=== PATIENT | female | born 1960 ===

== ENCOUNTER 2021-05-19 17:15 | Outpatient (REF) | payer OTHER, SELFPAY | END 2021-05-19 17:16 | disposition home or self-care (01) | LOC: HO.LAB 17:15 | PROVIDERS: Visit Provider Nurse Practitioner Family | DX: N39.0 Urinary tract infection, site not specified (principal) | CPT/HCPCS: 87086; 87088; 87186 ==

== ENCOUNTER 2024-10-24 10:45 | Outpatient (AMB) | payer OTHER, SELFPAY ==
[2024-10-24 10:53] VITALS: BP 138/74; PULSE 74; O2SAT 99; BMI 34.4
--- NOTE | 2024-10-24 10:53 | A.OFFVIS_ITS ---
Vital Signs 10/24/24 10:53 Height 4 ft 11 in Weight 170 lb 3.15 oz BMI 34.4 BP 138/74 Blood Pressure Location Lt brachial Position Sitting Pulse 74 Pulse Source Pulse Oximeter Pulse Oximetry (%) 99 Oxygen Delivery Method Room Air Intake Visit Reasons: Arthralgia/Inj Intake Note: Patient presents for bursitis in her hips and cortisone injection. Allergies oxycodone Allergy (Mild, Verified 10/24/24 11:02) Anaphylaxis norepinephrine Allergy (Verified 10/24/24 11:02) Unknown sulfamethoxazole [From Bactrim] Allergy (Verified 10/24/24 11:02) Unknown trimethoprim [From Bactrim] Allergy (Verified 10/24/24 11:02) Unknown HPI HPI Arthralgia/Inj: Details: She has bilateral hip pain, worsening in the last few months. She has not had a cortisone injection in 6 months. Review of Systems Const All systems reviewed & are unremarkable except as noted in HPI and below Physical Exam Vital Signs: Last Vital Signs Pulse 74 10/24/24 10:53 BP 138/74 10/24/24 10:53 Pulse Ox 99 10/24/24 10:53 Oxygen Delivery Method Room Air 10/24/24 10:53 BMI result Body Mass Index 34.4 Const Other: General: Comfortable Skin: No lesions seen MSK: Trochanteric bursa tenderness found. Good range of motion of bilateral hips. Office Procedures AMB Joint Injection/Aspiration Joint Injection/Aspiration Details: Left trochanteric bursa Prep: site was prepped using aseptic technique Injected: 40 mg of, Kenalog, with 1 mL of and 1% plain lidocaine Procedure: The patient tolerated the procedure well Coding - Bilateral Large Joint - Glenohumeral/Tronchanteric Bursa/Intraarticular Procedure code (CPT) selection complete AMB Joint Injection/Aspiration Joint Injection/Aspiration Details: Right trochanteric bursa Prep: site was prepped using aseptic technique Injected: 40 mg of, Kenalog, with 1 mL of and 1% plain lidocaine Procedure: The patient tolerated the procedure well Coding - Bilateral Large Joint - Glenohumeral/Tronchanteric Bursa/Intraarticular Procedure code (CPT) selection complete Office Meds lidocaine (PF) 10 mg/mL (1 %) injection solution Performing Provider: Eugene Chamberlain MD Performing Location: [facility] [place] [facility] Administered by: Eugene Chamberlain MD on 10/25/24 12:35 Dose Route Admin Location Dispensed Lot Number Expiration Date [facility] Legal Biller 10 mg Infiltration 2 mL [id number] [employer] Kenalog 40 mg/mL suspension for injection Performing Provider: Eugene Chamberlain MD Performing Location: [facility] [place] [facility] Administered by: Eugene Chamberlain MD on 10/25/24 12:35 Dose Route Admin Location Dispensed Lot Number Expiration Date [facility] Legal Biller 40 mg intrabursal 1 mL AP [id number] [employer] lidocaine (PF) 10 mg/mL (1 %) injection solution Performing Provider: Eugene Chamberlain MD Performing Location: [facility] [place] [facility] Administered by: Eugene Chamberlain MD on 10/25/24 12:35 Dose Route Admin Location Dispensed Lot Number Expiration Date [facility] Legal Biller 10 mg Infiltration 2 mL [id number] [employer] Kenalog 40 mg/mL suspension for injection Performing Provider: Eugene Chamberlain MD Performing Location: [facility] [place] [facility] Administered by: Eugene Chamberlain MD on 10/25/24 12:35 Dose Route Admin Location Dispensed Lot Number Expiration Date [facility] Legal Biller 40 mg intrabursal 1 mL AP [id number] [employer] Assessment & Plan Assessment & Plan (1) Greater trochanteric bursitis of both hips: Comment: Pain is uncontrolled. Code(s): M70.61 - Trochanteric bursitis, right hip; M70.62 - Trochanteric bursitis, left hip Category: Medical Plan: Bilateral trochanteric bursa cortisone injections given today Return to clinic in 3 months Orders: Orders AMB Joint Injection/Aspiration 10/24/24 M70.61 - Trochanteric bursitis, right hip, M70.62 - Trochanteric bursitis, left hip AMB Joint Injection/Aspiration 10/24/24 M70.61 - Trochanteric bursitis, right hip, M70.62 - Trochanteric bursitis, left hip Coding Level of Care Code Est Pt Level 3 (54298) Complex EM visit Add On G2211 Diagnoses Greater trochanteric bursitis of both hips M70.61; M70.62 CPT Codes Coding - 38020 - Bilateral Large Joint: 77375 - Bilateral Large Joint ([id number]) Coding - Joint 7: 24172 - Glenohumeral/Tronchanteric Bursa/Intraarticular ([id number]) Coding - 87999 - Bilateral Large Joint: 84967 - Bilateral Large Joint ([id number]) Coding - Joint 7: 52898 - Glenohumeral/Tronchanteric Bursa/Intraarticular ([id number])
== END 2024-10-24 12:04 | disposition home or self-care (01) ==
PROVIDERS: Visit Provider Internal Medicine Rheumatology
DX: M70.61 Trochanteric bursitis, right hip (principal); M70.62 Trochanteric bursitis, left hip
CPT/HCPCS: 20610; 99213

== ENCOUNTER → 2024-10-24 10:45 | Outpatient (BNVA) | payer OTHER, SELFPAY | PROVIDERS: Visit Provider Internal Medicine Rheumatology | DX: M70.61 Trochanteric bursitis, right hip (principal); M70.62 Trochanteric bursitis, left hip | CPT/HCPCS: 20610; 99212; J2003; J3300 ==

== ENCOUNTER 2025-01-18 10:38 | Outpatient (AMB) | payer OTHER, SELFPAY ==
--- NOTE | 2025-01-18 10:43 | MHC.OFFVIS ---
Vital Signs 01/18/25 10:54 Height 4 ft 11 in Weight 160 lb 4.417 oz BMI 32.4 BP 130/80 Blood Pressure Location Lt brachial Position Sitting Pulse 83 Pulse Source Pulse Oximeter Pulse Oximetry (%) 100 Oxygen Delivery Method Room Air Intake Visit Reasons: Follow Up 3mo Intake Note: Patient presents for bursitis in her hips with cortisone injection Allergies oxycodone Allergy (Mild, Verified 01/18/25 10:57) Anaphylaxis norepinephrine Allergy (Verified 01/18/25 10:57) Unknown sulfamethoxazole [From Bactrim] Allergy (Verified 01/18/25 10:57) Unknown trimethoprim [From Bactrim] Allergy (Verified 01/18/25 10:57) Unknown HPI HPI Follow Up 3mo: Details: Last cortisone injections lasting at least 2 months. She started experiencing increased pain progressively getting worse in the last month. Review of Systems Const All systems reviewed & are unremarkable except as noted in HPI and below Physical Exam Vital Signs: Last Vital Signs Pulse 83 01/18/25 10:54 BP 130/80 01/18/25 10:54 Pulse Ox 100 01/18/25 10:54 Oxygen Delivery Method Room Air 01/18/25 10:54 BMI result Body Mass Index 32.4 Const Other: General: Comfortable Skin: No lesions seen MSK: Trochanteric bursa tenderness found. Tender bilateral gluteal regions. Good range of motion of bilateral hips. Office Procedures AMB Joint Injection/Aspiration Joint Injection/Aspiration Details: Bilateral trochanteric bursa Prep: site was prepped using aseptic technique Injected into each site: 40 mg of, Kenalog, with 1 mL of and 1% plain lidocaine Procedure: The patient tolerated the procedure well. Postprocedure protocol was discussed with patient. Coding 78583 - Bilateral Large Joint Procedure code (CPT) selection complete AMB Joint Injection/Aspiration Coding 60028 - Bilateral Large Joint Procedure code (CPT) selection complete Office Meds lidocaine (PF) 10 mg/mL (1 %) injection solution Performing Provider: Eugene Chamberlain MD Per[place] Location[place] [facility] [place] Administered by: Eugene Chamberlain MD on 01/18/25 11:22 Dose Route Admin Location Dispensed Lot Number Expiration Date [facility] Independent Producer 10 mg Infiltration 2 mL [id number] [facility] Kenalog 40 mg/mL suspension for injection Performing Provider: Eugene Chamberlain MD Performing Location: [facility] [place] [facility] Administered by: Eugene Chamberlain MD on 01/18/25 11:22 Dose Route Admin Location Dispensed Lot Number Expiration Date [facility] Independent Producer 40 mg intrabursal 1 mL AP [id number] [employer] lidocaine (PF) 10 mg/mL (1 %) injection solution Performing Provider: Eugene Chamberlain MD Performing Location: [facility] [place] [facility] Administered by: Eugene Chamberlain MD on 01/18/25 11:22 Dose Route Admin Location Dispensed Lot Number Expiration Date [facility] Independent Producer 10 mg Infiltration 2 mL [id number] [facility] Kenalog 40 mg/mL suspension for injection Performing Provider: Eugene Chamberlain MD Performing Location: [facility] [place] [facility] Documented (not given) by: Eugene Chamberlain MD on 01/18/25 11:22 Dose Route Admin Location Dispensed Lot Number Expiration Date [facility] Independent Producer 40 mg intrabursal mL Assessment & Plan Assessment & Plan (1) Greater trochanteric bursitis of both hips: Comment: Pain is uncontrolled. Code(s): M70.61 - Trochanteric bursitis, right hip; M70.62 - Trochanteric bursitis, left hip Category: Medical Plan: Patient received bilateral trochanteric bursa cortisone injection this visit She agreed to start physical therapy for hip strengthening with hope of having improved control of trochanteric bursa pain Return to clinic in 3 months Orders: Orders AMB Joint Injection/Aspiration Today M70.61 - Trochanteric bursitis, right hip, M70.62 - Trochanteric bursitis, left hip PT Evaluation and Treatment Today M70.61 - Trochanteric bursitis, right hip, M70.62 - Trochanteric bursitis, left hip AMB Joint Injection/Aspiration Today M70.61 - Trochanteric bursitis, right hip, M70.62 - Trochanteric bursitis, left hip Medications: New Kenalog (triamcinolone acetonide) 40 mg intrabursal ONCE 1 mL 0RF NS M70.61 - Trochanteric bursitis, right hip, M70.62 - Trochanteric bursitis, left hip Coding Level of Care Code Est Pt Level 3 (72038) Complex EM visit Add On G2211 Diagnoses Greater trochanteric bursitis of both hips M70.61; M70.62 CPT Codes Coding - 56768 - Bilateral Large Joint: 60911 - Bilateral Large Joint ([id number]) Coding - 33291 - Bilateral Large Joint: 00745 - Bilateral Large Joint ([id number])
[2025-01-18 10:54] VITALS: BP 130/80; PULSE 83; O2SAT 100; BMI 32.4
== END 2025-01-18 11:35 | disposition home or self-care (01) ==
LOC: HO.RHES 10:39
PROVIDERS: Visit Provider Internal Medicine Rheumatology
DX: M70.61 Trochanteric bursitis, right hip (principal); M70.62 Trochanteric bursitis, left hip
CPT/HCPCS: 20610

== ENCOUNTER → 2025-01-18 10:38 | Outpatient (BNVA) | payer OTHER, SELFPAY | PROVIDERS: Visit Provider Internal Medicine Rheumatology | DX: M70.61 Trochanteric bursitis, right hip (principal); M70.62 Trochanteric bursitis, left hip | CPT/HCPCS: 20610; J2003; J3300 ==

== ENCOUNTER 2025-05-24 08:53 | Outpatient (AMB) | payer OTHER, SELFPAY ==
--- NOTE | 2025-05-24 08:56 | MHC.OFFVIS ---
Vital Signs 05/24/25 08:59 Height 4 ft 11 in Weight 173 lb BMI 34.9 BP 120/90 H Blood Pressure Location Rt brachial Position Sitting Pulse 85 Pulse Source Pulse Oximeter Pulse Oximetry (%) 96 Oxygen Delivery Method Room Air Intake Visit Reasons: follow up Intake Note: Patient presents for bursitis in her hips with cortisone injection Accompanied by: Self / Same As Patient Allergies oxycodone Allergy (Mild, Verified 05/24/25 09:00) Anaphylaxis norepinephrine Allergy (Verified 05/24/25 09:00) Unknown sulfamethoxazole (From Bactrim) Allergy (Verified 05/24/25 09:00) Unknown trimethoprim (From Bactrim) Allergy (Verified 05/24/25 09:00) Unknown HPI HPI follow up: Details: Pain in hips is uncontrolled. She went to ER for back pain and hip pain with lower back pain radiating up. She was given ketorolac and had imaging done. L-spine x-ray 03/29/2025 revealed levoscoliosis, grade 1 3.7 mm posterior spondylolisthesis of L5 relative to S1. There is degenerative disc disease at L5-S1. She continues to have lower back pain with radiation up the back. She had MRI L-spine but does not have report with her. She has not started PT. Physical Exam Vital Signs: Last Vital Signs Pulse 85 05/24/25 08:59 BP 120/90 H 05/24/25 08:59 Pulse Ox 96 05/24/25 08:59 Oxygen Delivery Method Room Air 05/24/25 08:59 BMI result Body Mass Index 34.9 Const Other: General: Comfortable Skin: No lesions seen MSK: Bilateral Trochanteric bursa tenderness found. Good range of motion of bilateral hips. Tender to palpate lower lumbar spinous process and paraspinal muscles. Limited lumbar flexion. Office Procedures AMB Joint Injection/Aspiration Joint Injection/Aspiration Details: Bilateral trochanteric bursa Prep: site was prepped using aseptic technique Injected into each site: 40 mg of, Kenalog, with 1 mL of and 1% plain lidocaine Procedure: Informed verbal consent was obtained. The patient tolerated the procedure well. Postprocedure protocol was discussed with patient. Coding 72236 - Bilateral Large Joint Procedure code (CPT) selection complete AMB Joint Injection/Aspiration Coding 75197 - Bilateral Large Joint Procedure code (CPT) selection complete Office Meds lidocaine (PF) 10 mg/mL (1 %) injection solution Performing Provider: Eugene Chamberlain MD [place] [facility] [place] Administered by: Eugene Chamberlain MD on 05/24/25 09:08 Dose Route Admin Location Dispensed Lot Number Expiration Date ND [employer] 10 mg Infiltration 2 mL [id number] 03/24/27 21576-622-95 [employer] Total Dispensed Waste 2 mL 50 % Kenalog 40 mg/mL suspension for injection Performing Provider: Eugene Chamberlain MD Performing Location: [facility] [place] [facility] Administered by: Eugene Chamberlain MD on 05/24/25 09:08 Dose Route Admin Location Dispensed Lot Number Expiration Date ND [employer] 40 mg intrabursal 1 mL [id number] 09/23/26 3656-8869-92 [employer] Total Dispensed Waste 1 mL 0 % lidocaine (PF) 10 mg/mL (1 %) injection solution Performing Provider: Eugene Chamberlain MD Performing [place] [facility] [place] [facility] Administered by: Eugene Chamberlain MD on 05/24/25 09:08 Dose Route Admin Location Dispensed Lot Number Expiration Date ND [employer] 10 mg Infiltration 2 mL [id number] 03/24/27 09969-528-75 [employer] Total Dispensed Waste 2 mL 50 % Kenalog 40 mg/mL suspension for injection Performing Provider: Eugene Chamberlain MD Performing Location: [facility] [place] [facility] Administered by: Eugene Chamberlain MD on 05/24/25 09:08 Dose Route Admin Location Dispensed Lot Number Expiration Date [facility] [employer] Assistant 40 mg intrabursal 1 mL [id number] 09/23/26 0740-5723-33 [employer] Total Dispensed Waste 1 mL 0 % Assessment & Plan Assessment & Plan (1) Greater trochanteric bursitis of both hips: Comment: Pain is uncontrolled. Recurrent. Code(s): M70.61 - Trochanteric bursitis, right hip; M70.62 - Trochanteric bursitis, left hip Category: Medical Plan: Patient received bilateral trochanteric bursa cortisone injections Return to clinic in 3-4 months (2) Lumbar spondylolysis: Comment: With radiating pain up spine. Discussed conservative management Code(s): M43.06 - Spondylolysis, lumbar region Category: Medical Plan: Start meloxicam 15 mg daily Okay to take Tylenol with meloxicam Baseline labs prior to starting NSAID ordered Apply heat to back PT ordered She is on pregabalin. If pain does not improve, she can discuss increasing pregabalin dose with PCP. MRI lumbar spine report requested from [facility] Return to clinic in 3-4 months Orders: Orders AMB Joint Injection/Aspiration Today M70.61 - Trochanteric bursitis, right hip, M70.62 - Trochanteric bursitis, left hip Alanine Aminotransferase Today Z79.1 - intermediate designer (current) use of non-steroidal anti-inflammatories (NSAID) Aspartate Amino Transferase Today Z79.1 - USP (current) use of non-steroidal anti-inflammatories (NSAID) AMB Joint Injection/Aspiration Today M70.61 - Trochanteric bursitis, right hip, M70.62 - Trochanteric bursitis, left hip Creatinine Today Z79.1 - intermediate designer (current) use of non-steroidal anti-inflammatories (NSAID) Complete Blood Count Auto Diff Today Z79.1 - USP (current) use of non-steroidal anti-inflammatories (NSAID) Medications: New meloxicam Take with food 15 mg PO DAILY 30 tabs 2RF Coding Level of Care Code Est Pt Level 4 (57116) Complex EM visit Add On G2211 Diagnoses Greater trochanteric bursitis of both hips M70.61; M70.62 Lumbar spondylolysis M43.06 CPT Codes Coding - 19964 - Bilateral Large Joint: 85199 - Bilateral Large Joint ([id number]) Coding - 92521 - Bilateral Large Joint: 03203 - Bilateral Large Joint ([id number])
[2025-05-24 08:59] VITALS: BP 120/90; PULSE 85; O2SAT 96; BMI 34.9
--- OUTSIDE RECORDS SUMMARY | 2025-05-24 09:13 | XMS_ITS | Clinical Summary ---
Author Organization [facility] Address [address] [place] [address] Phone Care Team Providers Care Burning Supervisor Name Role Phone Shahid Abreu Primary Care Provider [phone] Allergies Active Allergy Reactions Criticality Noted Date Comments Nortriptyline Anaphylaxis High 03/23/2019 Other reaction(s): Anaphylactic Other reaction(s): facial and throat swelling H/A and Dizziness Other reaction(s): Anaphylactic Other Reaction(s): facial and throat swelling H/A and Dizziness Oxycodone 08/31/2024 Other Reaction(s): facial puffiness, Rash, itching Sulfamethoxazole-Trimethop rim Swelling High 04/15/2015 Other reaction(s): Anaphylaxis Other Reaction(s): Anaphylaxis Medications naproxen (NAPROSYN) 500 mg tablet Take 1 tablet (500 mg total) by mouth 2 (two) times a day with meals. 10 tablet 03/30/2025 Active Active Problems No known active problems Encounters Date Type Department Care Team Description 03/29/2025 10:57 AM EDT - 03/29/2025 1:[address] [facility] Emergency [address] [place] [address] Acute bilateral low back pain with bilateral sciatica (Primary Dx) Discharge Disposition: Home or Self Care from Last 3 Months Surgical History Surgery Date Site/Laterality Comments OTHER SURGICAL HISTORY 1994 PROCEDURE: WI RAD ABDL HYSTERECTOMY W/BI PELVIC LMPHADENECTOMY; COMMENT: 1 ovary remaining HERNIA REPAIR 2007 PROCEDURE: REPAIR UMBILICAL HERNIA Family History Medical History Relation Name Comments Hypertension Brother 1 Other: CKD Brother 2 on dialysis Hyperlipidemia Mother Hypertension Mother Relation Name Status Comments Brother 1 Brother 2 Brother 3 Alive Father unsure - never met Maternal Grandmother Alive bone ca ncer Mother Alive Sister Alive Social History Tobacco Use Types Packs/Day Years Used Date Smoking Tobacco: Never Smokeless Tobacco: Never Alcohol Use Standard Drinks/Week Comments Yes 0 (1 standard drink = 0.6 oz pur e alcohol) Comments Unknown Sex and Gender Information Value Date Recorded Sex Assigned at Not on file Legal Sex Female 5:43 AM EST Gender Identity Not on file Sexual Orientation Not on file Obstetrics History Last Filed Vital Signs Vital Sign Reading Time Taken Comments Blood Pressure 169/98 03/29/2025 10:48 AM EDT Pulse 98 03/29/2025 10:48 AM EDT Temperature 36.9 C (98.4 F) 03/29/2025 10:48 AM EDT Respiratory Rate 16 03/29/2025 10:48 AM EDT Oxygen Saturation 96% 03/29/2025 10:48 AM EDT Inhaled Oxygen Concentration - - Weight 77.1 kg (170 lb) 03/29/2025 10:48 AM EDT Height 149.9 cm (4' 11 ) 03/29/2025 10:48 AM EDT Body Mass Index 34.34 03/29/2025 10:48 AM EDT Plan of Treatment Health Maintenance Due Date Last Done Comments Pneumococcal Vaccine: 50+ Years (1 of 1 - PCV) 2011 Colorectal Cancer Screening: Colonoscopy 09/27/2022 Hepatitis C Screening 09/27/2022 Medicare Annual Wellness Visit 09/27/2022 Social Influencers of Health Screening 09/27/2022 COVID-19 Vaccine ( season) 2024 03/18/2021, 02/13/2021 Depression Screening 10/25/2024 Influenza Vaccine (#1) 2025 , 09/07/2023, 01/04/2020, Additional history exists Breast Cancer Screening 07/14/2025 07/14/2023 Hypertension/CHF/CAD Annual BMP Blood Test 08/31/2025 08/31/2024 DTaP,Tdap,and Td Vaccines (4 - Td or Tdap) 08/11/2028 08/11/2018, 12/17/2014, 11/23/2007 Cholesterol Screening (Lipid Panel) 08/31/2029 08/31/2024, 08/31/2024, 07/05/2023, Additional history exists RSV Immunization Adult Patients (1 - 1-dose 75+ series) 2036 HIV Screening Completed 08/15/2018 Zoster Vaccines Completed 06/30/2023, 02/17/2022 HIB Vaccines Aged Out No longer eligi ble based on patient's age to complete this topic HPV Vaccines Aged Out No longer eligi ble based on patient's age to complete this topic Hepatitis A Vaccines Aged Out No long er eligible based on patient's age to complete this topic Hepatitis B Vaccines Aged Out No long er eligible based on patient's age to complete this topic IPV Vaccines Aged Out No longer eligi ble based on patient's age to complete this topic MMR Vaccines Aged Out No longer eligi ble based on patient's age to complete this topic Meningococcal ACWY Vaccine Aged Out N o longer eligible based on patient's age to complete this topic Meningococcal B Vaccine Aged Out No l onger eligible based on patient's age to complete this topic RSV Immunization Patients Under 20 months Aged Out No longer eligible based on patient's age to complete this topic Varicella Vaccines Aged Out No longer eligible based on patient's age to complete this topic Procedures Procedure Name Priority Date/Time Associated Diagnosis Comments XR LUMBAR SPINE 2-3 VIEWS STAT 03/29/2025 12:06 PM EDT TRENA SCREENING DIGITAL Routine 07/14/2023 3:30 PM EDT Encounter for screening mammogram for malignant neoplasm of breast from Last 3 Months or Most Recently Relevant to Health Maintenance Results * XR Lumbar Spine 2-3 Views (03/29/2025 12:06 PM EDT) Anatomical Region Laterality Modality Spine, L-spine Radiographic Lina ging 03/29/2025 12:0 8 PM EDT Impressions 03/29/2025 12:11 PM EDT No acute findings. 7 degree levoscoliosis with the apex at the L3 level. Grade 1, 3.7 mm posterior spondylolisthesis of L5 relative to S1. There is degenerative disc disease at the L5-S1 level. Code 42650 -------- FINAL REPORT -------- Dictated By: Tomas Wright Dictated Date: 03/29/2025 12:08 ET Assigned Physician: Tomas Wright Reviewed and Electronically Signed By: Tomas Wright Signed Date: 03/29/2025 12:11 ET Workstation ID: [id number] Transcribed By: Self Edit Transcribed Date: 03/29/2025 12:08 ET Narrative 03/29/2025 12:11 PM EDT HISTORY: The patient is a 64-year-old female with low back pain for 2 weeks. No history of trauma is provided. FINDINGS: AP and lateral radiographs of the lumbosacral spine are obtained. The study demonstrates mild, 7 degree levoscoliosis with the apex at the L3 level. The there is mild, grade 1, 3.7 mm posterior spondylolisthesis of L5 relative to S1. No fracture is seen and no osteolytic or osteoblastic lesion is demonstrated. There is narrowing of the L5-S1 disc space consistent with degenerative disc disease. The remaining disc spaces are well-maintained. Multiple surgical clips, as well as hernia repair mesh, are present in the lower abdomen and in the pelvis. Atherosclerotic arterial calcification is noted. Procedure Note Tomas Wright MD - 03/29/2025 HISTORY: The patient is a 64-year-old female with low back pain for 2weeks. No history of trauma is provided. FINDINGS: AP and lateral radiographs of the lumbosacral spine areobtained. The study demonstrates mild, 7 degree levoscoliosis with theapex at the L3 level. The there is mild, grade 1, 3.7 mm posteriorspondylolisthesis of L5 relative to S1. No fracture is seen and noosteolytic or osteoblastic lesion is demonstrated. There is narrowing ofthe L5-S1 disc space consistent with degenerative disc disease. Theremaining disc spaces are well-maintained. Multiple surgical clips, as well as hernia repair mesh, are present in thelower abdomen and in the pelvis. Atherosclerotic arterial calcification isnoted. IMPRESSION: No acute findings. 7 degree levoscoliosis with the apex at the L3 level.Grade 1, 3.7 mm posterior spondylolisthesis of L5 relative to S1. There isdegenerative disc disease at the L5-S1 level. Code 80745 -------- FINAL REPORT -------- Dictated By: Tomas Wright Dictated Date: 03/29/2025 12:08 ET Assigned Physician: Tomas Wright Reviewed and Electronically Signed By: Tomas Wright Signed Date: 03/29/2025 12:11 ET Workstation ID: [id number] Transcribed By: Self Edit Transcribed Date: 03/29/2025 12:08 ET us Tonja GOODE IMG XR PROCEDURES Final Result * TRENA SCREENING DIGITAL (07/14/2023 3:30 PM EDT) Anatomical Region Laterality Modality Mammography 07/13/2023 2:59 PM EDT Narrative 07/14/2023 3:30 PM EDT [facility] Diagnostic Imaging Department [address] [place] [address] Patient: CODI ABEL./Age/Sex: 1960 - 62 - F Unit#: [id number] Location/Status: [facility]/REG CLI Mnemonic/Ordering Site: DIGSC/SPMAM Ordering Physician: SHAHID ABREU Trena Screening Digital - 07/13/23 - 1518 Report Status:Signed EXAM: Trena Screening Digital EXAM DATE AND TIME: 07/13/2023 3:19 PM HISTORY: Annual screening COMPARISON: 09/14/2022, 08/22/2021, 01/09/2020 TECHNIQUE: Bilateral digital breast tomosynthesis was performed in the CC and MLO projections. Computer aided detection with [employer] 3D 3.1 was employed. TISSUE DENSITY: b. There are scattered areas of fibroglandular density. FINDINGS: No suspicious masses, grouped microcalcifications, or areas of architectural distortion are seen. The skin and vascularity are unremarkable. IMPRESSION: Stable mammographic appearance of the breasts. No evidence of malignancy is seen. A negative mammogram in the presence of a clinically suspicious palpable abnormality does not preclude the possibility of malignancy or alter the indications for biopsy. BI-RADS: Category 1: Negative RECOMMENDATION(S): 1: Routine screening mammogram BILATERAL in 1 year. 1701F, 7055F Dictating Physician: TOO HARRIS MD Electronically Signed by: TOO HARRIS MD Dic Date/Time: 07/14/23 1528 Sign date/Time: 07/14/23 1530 Procedure Note Too Harris - 11/30/2023 [facility] Diagnostic Imaging Department [address] [place] [address] Patient: CODI ABEL /Age/Sex: 1960 - 62 - F Unit#: [id number] Location/Status: SPDIMAM/REG CLI Mnemonic/Ordering Site: [facility] Ordering Physician: SHAHID ABREU Trena Screening Digital - 07/13/23 - 1518 Report Status:Signed EXAM: [facility] Screening Digital EXAM DATE AND TIME: 07/13/2023 3:19 PM HISTORY: Annual screening COMPARISON: 09/14/2022, 08/22/2021, 01/09/2020 TECHNIQUE: Bilateral digital breast tomosynthesis was performed in the CCand MLO projections. Computer aided detection with [employer] 3D 3.1was employed. TISSUE DENSITY: b. There are scattered areas of fibroglandular density. FINDINGS: No suspicious masses, grouped microcalcifications, or areas ofarchitectural distortion are seen. The skin and vascularity are unremarkable. IMPRESSION: Stable mammographic appearance of the breasts. No evidence of malignancyis seen. A negative mammogram in the presence of a clinically suspicious palpable abnormality does not preclude the possibility of malignancy or alter the indications for biopsy. BI-RADS: Category 1: Negative RECOMMENDATION(S): 1: Routine screening mammogram BILATERAL in 1 year. 3341F, 7056F Dictating Physician: TOO HARRIS MD Electronically Signed by: TOO HARRIS MD Dic Date/Time: 07/14/23 1528 Sign date/Time: 07/14/23 1530 Shahid GOODE IM BI PROCEDURES Final Result from Last 3 Months or Most Recently Relevant to Health Maintenance Insurance [employer] MED[employer] Member Subscriber Plan / Payer (Ef fective 2020-Present) Name:CODI ABEL Relation to Subscriber:Self Name:Codi Abel Payer ID:[id number] Group ID:[id number] Type:Not on file Address: [place] [address] [place] [address] Care Teams Burning Supervisor Relationship Specialty Start Date End Date Shahid Abreu PA [address] [place] [address] PCP - General Internal Medicine 08/07/22
--- OUTSIDE RECORDS SUMMARY | 2025-05-24 09:13 | XMS_ITS | Clinical Summary ---
Author Organization [facility] Address [address] [place] [address] Care Team Providers Care Splitting Machine Tender Name Role Phone Ricardo Abreu Primary Care Provider [phone] Source Comments PLEASE NOTE, if this patient is a minor, it may be UNLAWFUL to discuss sensitive information that is contained in these records (such as FAMILY PLANNING, MENTAL HEALTH or SUBSTANCE ABUSE) with the minor patient's parent or other person without the patient's specific authorization.[facility] Allergies Active Allergy Reactions Criticality Noted Date Comments Nortriptyline Anaphylaxis High 03/23/2019 Other reaction(s): facial and throat swelling H/A and Dizziness Other reaction(s): Anaphylactic Other Reaction(s): facial and throat swelling H/A and Dizziness Oxycodone 08/31/2024 Other Reaction(s): facial puffiness, Rash, itching Sulfamethoxazole-Trimethop rim Swelling High 04/15/2015 Other reaction(s): Anaphylaxis Other Reaction(s): Anaphylaxis Medications fluticasone (FLONASE) 50 mcg/actuation nasal sprayIndications:A cute non-recurrent maxillary sinusitis Place 2 Sprays in both nostrils once daily 16 g 1 8 Active naproxen (NAPROSYN) 375 mg tablet 9 Active ondansetron (ZOFRAN-ODT) 4 mg disintegrating tablet DIS ONE T PO Q 6 H PRN N 0 Active famotidine 10 mg/mL soln 0 Refills, Maintenance, 05/02/20 11:59:00 EDT 0 Active omeprazole-amoxici ll-rifabutin 10-250-12.5 mg CpID Take by mouth 0 Active PARoxetine mesylate,menop.sym , 7.5 mg cap Take 1 Capsule by mouth once daily 2 Active fluticasone furoate (VERAMYST) 27.5 mcg/actuation nasal spray Daily, 0 Refills, Maintenance, 05/02/20 11:59:00 EDT 0 Active estradioL (ESTRACE) 0.01 % (0.1 mg/gram) vaginal cream INSERT 0.5 GRAM VAGINALLY EVERY NIGHT FOR 2 WEEKS THEN USE VAGINALLY 2 TIMES PER WEEK 1 Active nitrofurantoin monohyd/m-cryst (MACROBID) 100 mg capsule TAKE 1 CAPSULE BY MOUTH AFTER SEXUAL ACTIVITY 2 Active lidocaine (LIDODERM) 5 % patchIndications:L ow back pain, unspecified back pain laterality, unspecified chronicity, unspecified whether sciatica present Place 1 Patch onto the skin daily. Apply 1 patch to the affected area for a maximum of 12 hours, followed by removal for 12 hours. 30 Patch 2 3 Active walkerIndications: Low back pain, unspecified back pain laterality, unspecified chronicity, unspecified whether sciatica present Please dispense one Rolator for patient with ambulation issues. 1 Each 3 Active loperamide (IMODIUM) 2 mg capsuleIndications :Diarrhea, unspecified type Take 1 Capsule by mouth 3 (three) times daily as needed for diarrhea 9 Capsule 3 Active walkerIndications: Severe obesity (CMS & HHS-HCC),Fibromyal elida,DDD (degenerative disc disease), lumbar,Low back pain, unspecified back pain laterality, unspecified chronicity, unspecified whether sciatica present,Sleep apnea, unspecified type,Moderate episode of recurrent major depressive disorder ([facility] & HHS-HCC) Please dispense one Rollator walker for patient. 1 Each 4 Active pregabalin (LYRICA) 75 mg capsuleIndications :Fibromyalgia TAKE 1 CAPSULE BY MOUTH TWICE DAILY 180 Capsule 1 5 Active famotidine (PEPCID) 40 mg tabletIndications: Gastroesophageal reflux disease with esophagitis TAKE 1 TABLET BY MOUTH DAILY 90 Tablet 1 5 Active amLODIPine (NORVASC) 5 mg tabletIndications: Essential hypertension TAKE 1 TABLET BY MOUTH DAILY 90 Tablet 5 Active propranoloL (INDERAL) 40 mg tablet Take 1 Tablet by mouth 2 (two) times daily as needed for other reason (anxiety). 180 Tablet 5 Active simvastatin (ZOCOR) 20 mg tabletIndications: Other hyperlipidemia Take 1 Tablet by mouth nightly at bedtime. 90 Tablet 2 5 Active lisinopriL-hydroch lorothiazide 20-25 mg per tabletIndications: Essential hypertension Take 1 Tablet by mouth every morning. 90 Tablet 1 5 Active menthol (COLD AND HOT) 5 % patchIndications:L ow back pain, unspecified back pain laterality, unspecified chronicity, unspecified whether sciatica present Place 1 Patch onto the skin every 8 (eight) hours as needed for pain. 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 Referring: Dr. Svetlana Phillips, now seeing Amalia Phillips in follow-up Oncology history: 1) 1994 - s/p radical hyst, [place], at [facility], stage IB cervical cancer, SCC -She did not require any adjuvant treatment after her radical hysterectomy, no h/o radiation. 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 Amalia Phillips. 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 Vaginal exam was performed and vaginal biopsy showed VAIN I She is feeling well today. Denies vaginal bleeding or abdominal pain. No other concerns today. Since her last visit underwent LSC with [place] with Dr. Estrada for abdominal pain and recovered well. Physical Exam Vitals & Measurements T: 97.6 F HR: 96 (Peripheral) RR: 18 BP: 134/83 SpO2: 100% HT: 149 cm WT: 82.0 kg BMI: 36.94 GOG Performance Status: 0, fully active General: She is in no acute distress. HEENT: Mucous membranes are moist. Neck: Supple, no thyromegaly. Trachea is midline. CVS: Heart is regular rate and rhythm, S1, S2. Lungs: Clear to auscultation bilaterally. GI: Soft, nontender, normoactive bowel sounds. She has no ascites, no hepatosplenomegaly, no hernias. Hematologic/Lymphatic: She has no neck or groin adenopathy. Neuro: Cranial nerves are grossly intact, normal sensation. Genitourinary: She has a normal vulva and vagina without lesions, Normal bladder and urethra without discharge. Cervix is surgically absent Uterus is surgically absent No nodularity in the cul-de-sac No adnexal masses Rectal: Not performed Musculoskeletal: She has normal gait and no edema in her extremities. Psychiatric: Appropriate. Skin: no rashes Assessment/Plan History of cervical cancer (Z85.41): . VAIN I (vaginal intraepithelial neoplasia grade I) (N89.0): Remote history of cervical cancer in 1994 with subsequent normal paps until recent pap prior to last visit showed LSIL/HPV negative and biopsy showed VAIN 1. Colposcopy at last visit was c/w low grade lesions. Pap collected today. If low grade or normal will plan for pap in 12 months and continue annually which can be done with her established SLURRY MIXER. If any HSIL pap in the future would recommend repeat colposcopy of the vagina. However, if paps remain low grade would continue to follow expectantly as these are very unlikely to progress to high grade lesions or malignancy. Patient is in agreement with plan and all questions answered today. - will contact with pap results, if low grade or normal will plan for follow-up with her established tea taster only, if high grade lesion will schedule for vaginal colposcopy with me. Anxiety 05/16/2024 Restless leg syndrome 05/16/2024 Sleep deprivation 05/16/2024 Obstructive sleep apnea 03/06/2024 RLQ abdominal pain 10/06/2023 Obesity (BMI 30-39.9) 04/26/2023 04/26/2023 GERD (gastroesophageal reflux disease) 04/26/2023 Osteopenia 04/26/2023 04/26/2023 Severe obesity (CMS & [facility]-HCC) 04/26/2023 0 04/26/2023 Vaginal dysplasia 04/26/2023 04/26/2023 DDD (degenerative disc disease), lumbar 08/04/20 22 04/26/2023 Colon polyps 05/17/2022 04/26/2023 Helicobacter pylori infection 01/13/2022 Overview (04/26/2023): Treated with quad therapy (tetra/metro/bismuth/PPI) and test of cure negative Treated with quad therapy (tetra/metro/bismuth/PPI) and test of cure negative History of cervical cancer 01/13/2022 Recurrent incisional hernia 01/13/2022 Fibromyalgia 03/23/2019 Overview (04/26/2023): Followed by Dr. Eugene Chamberlain at [facility] 12/15/2018 Epidermal inclusion cyst 11/02/2018 Depression 01/25/2017 Overview (11/28/2018): Lloyd akhtar H/O colonoscopy 01/25/2017 Overview (04/26/2023): Done 07/18/2013. Normal mammogram HTN (hypertension) 04/16/2015 HLD (hyperlipidemia) 04/16/2015 Overview (04/26/2023): Restarted medication 04/16/2015. Will follow up labs in 6 weeks. Skin lump of arm 04/25/2013 Overview (01/13/2022): Lloyd akhtar- Overview: X ~ 15 years. Occasionally swells & painful (~q 3 months) X ~ 15 years. Occasionally swells & painful (~q 3 months) Hematuria 11/22/2009 Overview (01/13/2022): 01/12/17: could not find source: follow up prn 12/15/16 Eval at Urology, Reyna Godoy NP. Recommended CT Urogram and f/u Overview: Had urine cytology and was seen by dr roy 2009 Had urine cytology and was seen by dr roy 2009 Encounters Date Type Department Care Team Description 05/04/2025 Results Follow-Up [facility] [address] [place] [id number] Jaron Lopez NP 04/12/2025 10:20 AM EDT Office Visit [facility] [address] [place] [id number] Jaron Lopez NP from Last 3 Months Immunizations Immunization Administration Dates Next Due Flu, Preservative Free 09/07/2023,01/04/2020, INFLUENZA, SEASONAL, INJECTABLE 08/27/2016,12/17,08/11/2013 Influenza (FLUBLOK),recombinant,injectable,preservati ve Free 08/31/2024 Moderna COVID-19 Vaccine, re d cap blue label, 12+ Primary Series 03/18/2021,02/13/2021 TDAP 08/11/2018,12/17/2014,11/23/2007 ZOSTER VACCINE, RECOMBINANT (SHINGRIX) 3,02/17/2022 Family History Medical History Relation Name Comments Kidney disease Brother 1 ckd Hypertension Brother 2 Hypertension Mother Relation Name Status Comments Brother 1 Brother 2 Mother Social History Tobacco Use Types Packs/Day Years Used Date Smoking Tobacco: Never Smokeless Tobacco: Never Tobacco Cessation:Counseling Given: Not Answered Alcohol Use Standard Drinks/Week Comments Yes 0 (1 standard drink = 0.6 oz pur e alcohol) Social Connections Answer Date Recorded How often do you feel lonely or isolated from th ose around you? 2 08/31/2024 Financial Resource Strain Answer Date R ecorded Hard to pay for: Food 1 08/31/2024 Stress Answer Date Recorded Do you feel these kinds of stress these days? 1 08/31/2024 Physical Activity Answer Date Recorded Physical Activity 0 06/18/2019 Food Insecurity Answer Date Recorded Hard to pay for: Food 1 08/31/2024 Transportation Needs Answer Date Record ed Hard to pay for: Transportation 1 08/31/2024 Housing Stability Answer Date Recorded What is your housing situation today? 1 08/31/2024 Safety and Environment Answer Date Jairo rded Safety 0 06/30/2023 Utilities Answer Date Recorded Hard to pay for: Utilities 1 08/31 Employment Answer Date Recorded Stress 0 01/13/2022 Comments No Sex and Gender Information Value Date Recorded Sex Assigned at Female 04/14/2018 8:12 AM PDT Legal Sex Female 9:28 AM PDT Gender Identity Female 04/14/2018 8:12 AM PDT Sexual Orientation Straight 04/14/2018 8: 12 AM PDT Last Filed Vital Signs Vital Sign Reading Time Taken Comments Blood Pressure 156/96 04/12/2025 10:21 AM EDT Pulse 79 04/12/2025 10:21 AM EDT Temperature 36.8 C (98.3 F) 04/12/2025 10:21 AM EDT Respiratory Rate 16 04/12/2025 10:21 AM EDT Oxygen Saturation 96% 04/12/2025 10:21 AM EDT Inhaled Oxygen Concentration - - Weight 80.3 kg (177 lb) 04/12/2025 10:21 AM EDT Height 149.9 cm (4' 11 ) 04/12/2025 10:21 AM EDT Body Mass Index 35.75 04/12/2025 10:21 AM EDT Plan of Treatment Health Maintenance Due Date Last Done Comments HPV Screening 1960 Medicare Annual Wellness Visit 1979 CT Colonography 2006 Fecal DNA 2006 Flexible Sigmoidoscopy 2006 Imm-Pneumococcal 50+ (1 of 1 - PCV) 2011 FIT/gFOBT 08/27/2017 08/27/2016 Anxiety Screening 12/19/2019 12/19/2018 [id number] ( season) 2024 021, 02/13/2021 Alcohol and Drug Screen 10/25/2024 08/31/20 24, 06/30/2023, 01/13/2022, Additional history exists Depression Monitoring 12/01/2024 08/31/2024 , 06/30/2023, 01/13/2022, Additional history exists Cervical Cancer Screening 01/07/2025 Pap + HPV 01/07/2025 01/08/2020, 12/21/2018 Pap Smear 01/07/2025 01/08/2020, 03/0 04/2019, 08/27/2016 Colonoscopy 04/13/2025 04/13/2022 Colorectal Cancer Screening 04/13/2025 Imm-Influenza (#1) 2025 08/31/2024, 1 11/07/2022, 01/04/2020, Additional history exists Lipid Screening 08/31/2025 08/31/2024, 06/25, 01/09/2021, Additional history exists Tobacco Screening 08/31/2025 08/31/2024 Breast Cancer Screening (Mammogram) 02/09/2027 02/09/2025, 07/13/2023, 11/26/2020, Additional history exists Diabetes Screening 08/31/2027 08/31/2024, 0 07/19/2023, 01/09/2021, Additional history exists Imm-DTaP/Tdap/Td (4 - Td or Tdap) 08/11/2028 08/11/2018, 12/17/2014, 11/23/2007 Hepatitis C Screening Completed 04/15/2015 HIV Screening Completed 08/15/2018 Imm-Zoster, Recombinant Completed 06/30/2023, 02/17 Cervical Ablation/Cold-Knife Conization Discontinued Cervical Cryotherapy Discontinued Colposcopy Discontinued Endometrial Biopsy Discontinued Excision/Leep Discontinued HPV Genotyping Discontinued Vaginal Pap Discontinued Vulvoscopy Discontinued Goals Goal Patient Goal Type Associated Problems Recent Progress Patient-Stated? Author Blood Pressure < 140/90 Blood Pressure HTN (hypertension) 156/96( 025 10:21 AM EDT) Brianne Adorno, PharmD Procedures Procedure Name Priority Date/Time Associated Diagnosis Comments MR LUMBAR WO Routine 04/24/2025 3:00 AM EDT Low back pain, unspecified back pain laterality, unspecified chronicity, unspecified whether sciatica present REFERRAL SCANNED DOCUMENT 04/09/2025 3:00 AM EDT IMAGING SCANNED DOCUMENT 03/29/2025 3:00 AM EDT REFERRAL SCANNED DOCUMENT 03/26/2025 3:00 AM EDT MEDICATIONS SCANNED DOCUMENT 03/09/2025 3:00 AM EDT REFERRAL SCANNED DOCUMENT 02/23/2025 3:00 AM EDT HISTORIC MAMMOGRAM 02/09/2025 3: 00 AM EDT COMPREHENSIVE METABOLIC PANEL Routine 08/31/2024 2:30 PM EST Routine adult health maintenance LIPID PANEL Routine 08/31/2024 2:30 PM EST Routine adult health maintenance REFERRAL FOR COLONOSCOPY Routine 04/13/2022 3:00 AM EDT Screening for colorectal cancer ANTIBODY HIV-1&HIV-2 SINGLE RESULT Routine 08/15/2018 12:00 PM EDT Routine adult health maintenance HEPATITIS A,B,C PANEL Routine 04/15/2015 2:33 PM EDT Routine adult health maintenance from Last 3 Months or Most Recently Relevant to Health Maintenance Results * MR LUMBAR WO (04/24/2025 3:00 AM EDT) 04/24/2025 3:00 AM EDT [facility] 04/25/2025 9:51 PM EDT CONCLUSION: 1. L4-5, moderate disc degeneration with 4 mm subarticular protrusion encroaching upon transiting left L5 nerve. No high-grade neural compression. 2. L5-S1, severe disc degeneration with retrolisthesis, paracentral discosteophyte and mildly narrow neural foramina. Transiting right S1 nerve also encroached upon without high-grade compression. Read by: Carlos Rhodes M.D. Reviewed and Electronically Signed by: Carlos Rhodes M.D. [facility] - 04/25/2025 9:51 PM EDT Original Report EXAM: MRI LUMBAR SPINE WITHOUT CONTRAST CLINICAL INFORMATION: Chronic and worsening low back pain TECHNICAL INFORMATION: 1. Sagittal and axial T1. 2. Sagittal and axial T2. 3. Sagittal STIR. SEDATION: None. COMPARISON: No existing relevant imaging immediately accessible. INTERPRETATION: The conus shows normal tapering and ends at L1. Included cord has normal internal signal and cauda equina is unremarkable. No spinal canal collections or intradural masses. Maintained lordotic curvature, preserved vertebral body heights. There is 5 mm degenerative retrolisthesis at L5-S1. No significant subluxations. Mostly Modic type I L5-S1, lesser type II L4-5 discogenic endplate reaction. Marrow signal elsewhere unremarkable. L5-S1: Severe disc degeneration with retrolisthesis and discosteophyte ridging resulting in greater right than left subarticular recess narrowing. Neural foramina mildly stenotic. No exiting nerve compression. Facet joints are normal. L4-5: Moderate disc degeneration with 4 mm left paracentral disc protrusion indenting the thecal sac. Transiting L5 nerve root approached without impingement. Neural foramina adequately patent. Facet joints maintain normal alignment and show no significant degeneration. L3-4: Mild disc desiccation without height loss. No posterior disc protrusion, significant spinal canal or foraminal narrowing. L2-3: Disc height and hydration are preserved. No disc contour abnormality, spinal canal or foraminal stenosis is identified. L1-2 and T12-1: Preserved disc heights. No posterior disc protrusions, significant spinal canal or foraminal stenoses. No prevertebral/paraspinous soft tissue masses or collections. Included pelvis intact and marrow signal normal. Superior portions of sacroiliac joints show no effusions, subarticular edema or sclerosis. Procedure Note Default, [facility] Provider - 04/25/2025 Original Report EXAM: MRI LUMBAR SPINE WITHOUT CONTRAST CLINICAL INFORMATION: Chronic and worsening low back pain TECHNICAL INFORMATION: 1. Sagittal and axial T1. 2. Sagittal and axial T2. 3. Sagittal STIR. SEDATION: None. COMPARISON: No existing relevant imaging immediately accessible. INTERPRETATION: The conus shows normal tapering and ends at L1. Included cord has normal internal signal and cauda equina is unremarkable. No spinal canal collections or intradural masses. Maintained lordotic curvature, preserved vertebral body heights. There is 5 mm degenerative retrolisthesis at L5-S1. No significant subluxations. Mostly Modic type I L5-S1, lesser type II L4-5 discogenic endplate reaction. Marrow signal elsewhere unremarkable. L5-S1: Severe disc degeneration with retrolisthesis and discosteophyte ridging resulting in greater right than left subarticular recess narrowing. Neural foramina mildly stenotic. No exiting nerve compression. Facet joints are normal. L4-5: Moderate disc degeneration with 4 mm left paracentral disc protrusion indenting the thecal sac. Transiting L5 nerve root approached without impingement. Neural foramina adequately patent. Facet joints maintain normal alignment and show no significant degeneration. L3-4: Mild disc desiccation without height loss. No posterior disc protrusion, significant spinal canal or foraminal narrowing. L2-3: Disc height and hydration are preserved. No disc contour abnormality, spinal canal or foraminal stenosis is identified. L1-2 and T12-1: Preserved disc heights. No posterior disc protrusions, significant spinal canal or foraminal stenoses. No prevertebral/paraspinous soft tissue masses or collections. Included pelvis intact and marrow signal normal. Superior portions of sacroiliac joints show no effusions, subarticular edema or sclerosis. IMPRESSION: CONCLUSION: 1. L4-5, moderate disc degeneration with 4 mm subarticular protrusion encroaching upon transiting left L5 nerve. No high-grade neural compression. 2. L5-S1, severe disc degeneration with retrolisthesis, paracentral discosteophyte and mildly narrow neural foramina. Transiting right S1 nerve also encroached upon without high-grade compression. Read by: Carlos Rhodes M.D. Reviewed and Electronically Signed by: Carlos Rhodes M.D. us Jaron Lopez NP [facility] [place] Edited Result - Final [facility] Corporate Office [address], [address] [place] [address], [place] [phone] * REFERRAL SCANNED DOCUMENT (04/09/2025 3:00 AM EDT) Only the most recent of3 resultswithin the time period is included. 04/09/2025 3:00 AM EDT us Ricardo Cartervais PA SCAN REFERRAL Final Result * IMAGING SCANNED DOCUMENT (03/29/2025 3:00 AM EDT) 03/29/2025 3:00 AM EDT us Ricardo Lois PA SCAN IMAGING Final Result * MEDICATIONS SCANNED DOCUMENT (03/09/2025 3:00 AM EDT) 03/09/2025 3:00 AM EDT [facility] Provider Default SCAN MEDS OTHER ORDERS Fin al Result * HISTORIC MAMMOGRAM (02/09/2025 3:00 AM EDT) 02/09/2025 3:00 AM EDT us Ricardo Abreu PA IMG MAMMO Final Result * (ABNORMAL) LIPID PANEL (08/31/2024 2:30 PM EST) CHOLESTEROL, TOTAL 238(H) <200 mg/dL [employer] [facility] HDL CHOLESTEROL 50 > OR = 50 mg/dL [employer] [facility] TRIGLYCERIDES 166(H) <150 mg/dL [employer] [facility] LDL-CHOLESTEROL 158(H) 99 mg/dL (calc) [employer] [facility] Comment: Reference range: <100 Desirable range <100 mg/dL for primary prevention; <70 mg/dL for patients with CHD or diabetic patients with > or = 2 CHD risk factors. LDL-C is now calculated using the Masha calculation, which is a validated novel method providing better accuracy than the Friedewald equation in the estimation of LDL-C. rBadford JAY et al. CORNELIUS. 2013;310(19): 5315-2613 (http://education.Sticky[employer]/faq/SDQ326) CHOL/HDLC RATIO 4.8 <5.0 (calc) [employer] [facility] NON-HDL CHOLESTEROL 188(H) <130 mg/dL (calc) [employer] [facility] Comment: For patients with diabetes plus 1 major ASCVD risk factor, treating to a non-HDL-C goal of <100 mg/dL (LDL-C of <70 mg/dL) is considered a therapeutic option. Blood Blood / Unknown 08/31/2024 2 :30 PM EST 08/31/2024 2:31 PM EST us Ricardo [facility] - BLOOD DRAW Final Result [employer] [address] [address], [employer] [address] [phone] * COMPREHENSIVE METABOLIC PANEL (08/31/2024 2:30 PM EST) GLUCOSE 88 65 - 99 mg/dL [employer] [facility] Comment: Fasting reference interval UREA NITROGEN (BUN) 14 7 - 25 mg/dL [employer] CREATININE (blood) 0.75 0.50 - 1.05 mg/dL [employer] EGFR 90 > OR = 60 mL/min/1. 73m2 [facility] [facility] BUN/CREATININE RATIO SEE NOTE: [employer] [facility] Comment: Not Reported: BUN and Creatinine are within reference range. SODIUM 136 135 - 146 mmol/L [employer] [facility] POTASSIUM 4.3 3.5 - 5.3 mmol/L [employer] [facility] CHLORIDE 100 98 - 110 mmol/L [facility] [facility] CARBON DIOXIDE 26 20 - 32 mmol/L [facility] [facility] CALCIUM 9.7 8.6 - 10.4 mg/dL [facility] PROTEIN, TOTAL 7.5 6.1 - 8.1 g/dL [facility] ALBUMIN 4.5 3.6 - 5.1 g/dL [facility] [facility] GLOBULIN 3.0 1.9 - 3.7 g/dL (calc) [facility] [facility] ALBUMIN/GLOBULI N RATIO 1.5 1.0 - 2.5 (calc) [facility] BILIRUBIN, TOTAL 0.6 0.2 - 1.2 mg/dL [facility] ALKALINE PHOSPHATASE 137 37 - 153 U/L [facility] AST 23 10 - 35 U/L [facility] ALT 20 6 - 29 U/L [facility] Blood Blood / Unknown 08/31/2024 2 :30 PM EST 08/31/2024 2:31 PM EST us Ricardo [facility] - BLOOD DRAW Final Result Performing Organization Address City/[facility]/ZIP Co de Phone Number [employer] [facility] [address] [address], [employer] [address] [phone] * REFERRAL FOR COLONOSCOPY (04/13/2022 3:00 AM EDT) 04/13/2022 3:00 AM EDT us Ricardo GOODE REFERRAL Edited Result - Final * HIV-1 & HIV-2 ANTIBODIES (08/15/2018 12:00 PM EDT) [facility] Signature HIV 1 AND 2 ANTIBODY SCREEN NEGATIVE NEGATIVE [facility] Comment: This assay is a 4th generation assay allowing for earlier detection of HIV infection by detecting the presence of the HIV-1 p24 antigen as well as the traditional antibodies to HIV type 1 (including group O) and type 2. Use of a 4th generation assay is the current CDC recommendation for HIV screening. 08/15/2018 12:0 0 PM EDT 08/15/2018 3:52 PM EDT Narrative [facility] [facility] - 08/15/2018 8:30 PM EDT [employer] Services [address] [place] [id number] PT ID [id number] ORD# [id number] us Ricardo GOO[facility] - BLOOD DRAW Final Result Performing Organization Address City/[facility]/ZIP Co de Phone Number [facility] [address] [place] [address], * (ABNORMAL) HEPATITIS A,B,C PANEL (04/15/2015 2:33 PM EDT) HEPATITIS B SURFACE ANTIBODY NEGATIVE NEGATIVE [facility] HEPATITIS B SURFACE ANTIGEN NEGATIVE NEGATIVE [facility] HEPATITIS C VIRUS DIAGNOSTIC NEGATIVE NEGATIVE [facility] HEPATITIS B CORE ANTIBODY NEGATIVE NEGATIVE [facility] HEPATITIS A ANTIBODY TOTAL POSITIVE(A) NEGATIVE [facility] Blood specimen (specimen) Blood / Unknown 04/15/2015 2:33 PM EDT 04/15/2015 2:33 PM EDT Narrative [facility] - 04/15/2015 7:21 PM EDT [facility] [employer] [address] [place] [address] PT ID [id number] ORD# [id number] Maritza Vega PA-C LAB - BLOOD DRAW Edited Res ult - Final [facility] [address] [place] [address], from Last 3 Months or Most Recently Relevant to Health Maintenance Insurance [facility] [employer] [facility] Care 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
== END 2025-05-24 09:33 | disposition home or self-care (01) ==
LOC: HO.RHES 08:53
PROVIDERS: Visit Provider Internal Medicine Rheumatology
DX: M70.61 Trochanteric bursitis, right hip (principal); M70.62 Trochanteric bursitis, left hip; M43.06 Spondylolysis, lumbar region
CPT/HCPCS: 20610; 99214

== ENCOUNTER → 2025-05-24 08:53 | Outpatient (BNVA) | payer OTHER, SELFPAY | PROVIDERS: Visit Provider Internal Medicine Rheumatology | DX: M70.61 Trochanteric bursitis, right hip (principal); M70.62 Trochanteric bursitis, left hip; M43.06 Spondylolysis, lumbar region; Z79.1 Long term (current) use of non-steroidal anti-inflammatories (NSAID) | CPT/HCPCS: 20610; 99212; J2003; J3300 ==

== ENCOUNTER 2025-09-12 11:46 | Outpatient (REF) | payer OTHER, SELFPAY | END 2025-09-12 11:47 | disposition home or self-care (01) | LOC: HO.HKASLDS 11:46 | PROVIDERS: PCP Dentist General Practice; Visit Provider Internal Medicine Rheumatology | DX: M70.61 Trochanteric bursitis, right hip (principal); M70.62 Trochanteric bursitis, left hip; M43.06 Spondylolysis, lumbar region; G89.29 Other chronic pain; M54.2 Cervicalgia; Z79.899 Other long term (current) drug therapy | CPT/HCPCS: 20610; 99212; J2003; J3301 ==

== ENCOUNTER 2025-09-12 11:52 | Outpatient (AMB) | payer OTHER, SELFPAY ==
--- NOTE | 2025-09-12 12:53 | A.OFFVIS_ITS ---
Vital Signs 09/12/25 12:54 Height 4 ft 11 in Weight 176 lb BMI 35.5 BP 120/74 Blood Pressure Location Rt brachial Position Sitting Pulse 80 Pulse Source Pulse Oximeter Pulse Oximetry (%) 97 Oxygen Delivery Method Room Air Intake Visit Reasons: Bilateral trochanteric bursa injections / 4 months Intake Note: Patient presents for bilateral bursitis in her hips with cortisone injection Accompanied by: Self / Same As Patient Allergies oxycodone Allergy (Mild, Verified 09/12/25 12:54) Anaphylaxis norepinephrine Allergy (Verified 09/12/25 12:54) Unknown sulfamethoxazole (From Bactrim) Allergy (Verified 09/12/25 12:54) Unknown trimethoprim (From Bactrim) Allergy (Verified 09/12/25 12:54) Unknown HPI HPI Bilateral trochanteric bursa injections / 4 months: Details: She has Neck pain with rotation. Takes tylenol 1000mg with some relief. PT is helping. Walking twice a week. Compliant with home exercise program. Last cortisone injection for trochanteric bursitis lasted 3 months. Physical Exam Vital Signs: Last Vital Signs Pulse 80 09/12/25 12:54 BP 120/74 09/12/25 12:54 Pulse Ox 97 09/12/25 12:54 Oxygen Delivery Method Room Air 09/12/25 12:54 BMI result Body Mass Index 35.5 Const Other: General: Comfortable Skin: No lesions seen MSK: Bilateral Trochanteric bursa tenderness found. Good range of motion of bilateral hips. Tender to palpate spinous process cervical spine with paraspinal muscles. She has good cervical rotation. Office Procedures AMB Joint Injection/Aspiration Joint Injection/Aspiration Details: Bilateral trochanteric bursa Prep: site was prepped using aseptic technique Injected into each site: 40 mg of, Kenalog, with 1 mL of and 1% plain lidocaine Procedure: Informed verbal consent was obtained. The patient tolerated the procedure well. Postprocedure protocol was discussed with patient. Coding 56252 - Bilateral Large Joint Procedure code (CPT) selection complete AMB Joint Injection/Aspiration Coding 45035 - Bilateral Large Joint Procedure code (CPT) selection complete Office Meds lidocaine (PF) 10 mg/mL (1 %) injection solution Performing Provider: Eugene Chamberlain MD Performing Location: [facility] [place] [facility] Administered by: Eugene Chamberlain MD on 09/12/25 14:11 Dose Route Admin Location Dispensed Lot Number Expiration Date [facility] Supervisor Beam Department 1 mL Infiltration right hip bursa 2 mL [id number] 06/24/28 12861-267- 04 [employer] Total Dispensed Waste 2 mL 50 % Kenalog 40 mg/mL suspension for injection Performing Provider: Eugene Chamberlain MD Performing Location: [facility] [place] [facility] Administered by: Eugene Chamberlain MD on 09/12/25 14:11 Dose Route Admin Location Dispensed Lot Number Expiration Date [facility] Supervisor Be[facility] Department 40 mg intrabursal right hip bursa 1 mL [id number] 04/23/27 [address] -1 [employer] Total Dispensed Waste 1 mL 0 % lidocaine (PF) 10 mg/mL (1 %) injection solution Performing Provider: Eugene Chamberlain MD Performing Location: [facility] [place] [facility] Administered by: Eugene Chamberlain MD on 09/12/25 14:11 Dose Route Admin Location Dispensed Lot Number Expiration Date [facility] Supervisor Beam Department 1 mL Infiltration left hip bursa 2 mL [id number] 06/24/28 80126-224-7 4 [employer] Total Dispensed Waste 2 mL 50 % Kenalog 40 mg/mL suspension for injection Performing Provider: Eugene Chamberlain MD Performing Location: [facility] [place] [facility] Administered by: Eugene Chamberlain MD on 09/12/25 14:11 Dose Route Admin Location Dispensed Lot Number Expiration Date [facility] Supervisor Beam Department 40 mg intrabursal left hip bursa 1 mL [id number] 04/23/27 [address]- 1 [employer] Total Dispensed Waste 1 mL 0 % Assessment & Plan Assessment & Plan (1) Greater trochanteric bursitis of both hips: Comment: Pain is uncontrolled. Recurrent. Code(s): M70.61 - Trochanteric bursitis, right hip; M70.62 - Trochanteric bursitis, left hip Category: Medical Plan: Patient received bilateral trochanteric bursa cortisone injections Return to clinic in 3-4 months (2) Lumbar spondylolysis: Comment: With radiating pain up spine. Improved with PT and meloxicam. He had MRI L-spine in the past. I requested report but did not receive it. Code(s): M43.06 - Spondylolysis, lumbar region Category: Medical Plan: She will try to discontinue meloxicam 15 mg daily. If pain reoccurs, she will resume meloxicam 15 mg daily Okay to take Tylenol with meloxicam Baseline labs prior to starting NSAID ordered last visit but she did it prior to today's visit Apply heat to back Continue PT home exercise program. She has a treadmill at home that she will start using. Return to clinic in 3 months (3) Chronic neck pain: Comment: Pain is uncontrolled. Suspect myofascial strain is contributing. We discussed conservative management Code(s): M54.2 - Cervicalgia; G89.29 - Other chronic pain Category: Medical Plan: Requesting [facility] records for C-spine x-ray results from the past. If she has not had a recent C-spine x-ray, I recommend that she have want to rule out spinal pathology contributing to her neck pain. Apply heat to neck twice a day Return to clinic in 3 months She deferred PT at this time. She may consider it next visit. Orders: Orders AMB Joint Injection/Aspiration Today M70.61 - Trochanteric bursitis, right hip, M70.62 - Trochanteric bursitis, left hip AMB Joint Injection/Aspiration Today M70.61 - Trochanteric bursitis, right hip, M70.62 - Trochanteric bursitis, left hip Medications: Refilled [Cane with rubber quad cane tip] As directed 1 ea 0RF NS meloxicam Take with food 15 mg PO DAILY 30 tabs 5RF Coding Level of Care Code Est Pt Level 4 (54446) Complex EM visit Add On G2211 Diagnoses Greater trochanteric bursitis of both hips M70.61; M70.62 Lumbar spondylolysis M43.06 Chronic neck pain M54.2; G89.29 CPT Codes Coding - 99741 - Bilateral Large Joint: 10351 - Bilateral Large Joint ([id number]) Coding - 60579 - Bilateral Large Joint: 37672 - Bilateral Large Joint ([id number])
[2025-09-12 12:54] VITALS: BP 120/74; PULSE 80; O2SAT 97; BMI 35.5
== END 2025-09-12 15:32 | disposition home or self-care (01) ==
LOC: HO.RHES 11:53
PROVIDERS: Visit Provider Internal Medicine Rheumatology
DX: M70.61 Trochanteric bursitis, right hip (principal); M70.62 Trochanteric bursitis, left hip; M43.06 Spondylolysis, lumbar region; M54.2 Cervicalgia; G89.29 Other chronic pain
CPT/HCPCS: 20610; 99214